=== PATIENT | female | born 1980 | race Caucasian/White ===

== ENCOUNTER 2016-08-04 16:56 | Emergency (ER) | payer BC ==
--- NOTE | 2016-08-04 18:21 | UC ---
UC General HPI - HPI Summary HPI Summary: Patient has a hx of IBS, has been havign alot of gas and some diarrhea, she had a large belch prior to arival and is feeling better. Just wanted to amke sure she was doing the right things to get through this episode of IBS. no diarrhea for a few days. - History of Current Complaint Chief Complaint: UCGI Stated Complaint: STOMACH COMPLAINT Time Seen by Provider: 08/04/16 18:05 Hx Obtained From: Patient Onset/Duration: Sudden Onset, Lasting Weeks Timing: Intermittent Episodes Lasting: Onset Severity: Mild Current Severity: Mild - Allergy/Home Medications Allergies/Adverse Reactions: Allergies Allergy/AdvReac Type Severity Reaction Status Date / Time No Known Allergies Allergy Verified 08/04/16 18:00 Home Medications: Home Medications NK [No Home Medications Reported] 08/04/16 [History Confirmed 08/04/16] PMH/Surg Hx/FS Hx/Imm Hx Previously Healthy: Yes - Surgical History Surgical History: Yes Surgery Procedure, Year, and Place: toe - Family History Known Family History: Positive: Cardiac Disease, Hypertension - Social History Alcohol Use: None Substance Use Type: None Smoking Status (MU): Never Smoked Tobacco - Immunization History Most Recent Influenza Vaccination: none Review of Systems Constitutional: Negative Skin: Negative Eyes: Negative ENT: Negative Respiratory: Negative Cardiovascular: Negative Gastrointestinal: Abdominal Pain, Diarrhea, Other - gas Genitourinary: Negative Motor: Negative Neurovascular: Negative Musculoskeletal: Negative Neurological: Negative Psychological: Anxious All Other Systems Reviewed And Are Negative: Yes Physical Exam Triage Information Reviewed: Yes Appearance: Well-Appearing, No Pain Distress, Well-Nourished Vital Signs: Initial Vital Signs Temp 98.0 F 08/04/16 17:54 Pulse 87 08/04/16 17:54 Resp 17 08/04/16 17:54 BP 147/73 08/04/16 17:54 Pulse Ox 100 08/04/16 17:54 Vital Signs Reviewed: Yes Eye Exam: Normal Eyes: Positive: Conjunctiva Clear ENT Exam: Normal ENT: Positive: Normal ENT inspection, Hearing grossly normal, Pharynx normal, TMs normal Dental Exam: Normal Neck exam: Normal Neck: Positive: Supple, Nontender, No Lymphadenopathy Respiratory Exam: Normal Respiratory: Positive: Chest non-tender, Lungs clear, Normal breath sounds Cardiovascular: Positive: RRR, No Murmur, Pulses Normal Abdomen Description: Positive: Nontender, No Organomegaly, Soft - no palpable masses, no organomegaly, no guarding or distension Bowel Sounds: Positive: Present Musculoskeletal Exam: Normal Musculoskeletal: Positive: Strength Intact, ROM Intact, No Edema Neurological Exam: Normal Neurological: Positive: Alert, Muscle Tone Normal Psychological Exam: Normal Skin Exam: Normal Course/Dx - Course Course Of Treatment: hx obtained, exam performed, meds reviewed, educated on diet, anxiety control and how it affects IBS. reviewed patients OTC meds. reaasured patient she is doing the right things. - Differential Dx - Multi-Symptom Differential Diagnoses: Other - diarrhea, gastroenteritis IBS, GI bleed Provider Diagnoses: anxiety. gas pain. IBS Discharge - Discharge Plan Condition: Stable Disposition: HOME Patient Education Materials: Irritable Bowel Syndrome (ED) Additional Instructions: Keep going with the gas Ex as needed. Introduce a good probiotic to your diet. De- stress after this latest health scare. Follow up if your symptoms start to worsen.
[2016-08-04 18:28] VITALS: BP 149/72
== END 2016-08-04 18:31 | disposition home or self-care (01) ==
LOC: EDBD 16:56 → UCCORT 16:56
DX: F41.9 Anxiety disorder, unspecified (principal); K58.9 Irritable bowel syndrome, unspecified; R03.0 Elevated blood-pressure reading, without diagnosis of hypertension
CPT/HCPCS: 99202; G0463